=== PATIENT | male | born 1975 | race Caucasian/White ===

== ENCOUNTER 2017-04-15 09:48 | Emergency (ER) | payer SELFPAY ==
[~2017-04-15] VITALS: Ht 175.3 cm; Wt 61.5 kg
[2017-04-15 09:57] VITALS: BP 164/80; PULSE 89; RESP 12; TEMP 98.2; O2SAT 99
[2017-04-15] MEDS ORDERED: CIPROFLOXACIN 500 MG TAB PO ONE (10:00)
[2017-04-15] MEDS ORDERED: TETANUS/DIPHTHERIA TOXOID ADULT 0.5 ML VIAL IM ONE (10:00)
--- NOTE | 2017-04-15 10:12 | PD ---
HPI Chief Complaint: Injury Time Seen by Provider: 10:00 Travel History International Travel<30 days: No Contact w/Intl Traveler<30days: No Traveled to known affect area: No History of Present Illness HPI while ripping roof, accidentally stepped on nail, through tennis shoe yesterday , he pulled nail out and kept working. this morning throbbing pain and noticed some redness to skin, 7/10, worse with walking, no alleviating factors. denies factors of fever/n/v/d/cp/abd pain/back pain all:nkda pmhx: hep c pshx:denies PFSH Past Medical History Hx Anticoagulant Therapy: No Cardiovascular Problems: No Chemotherapy: No Cerebrovascular Accident: No Diabetes: No Respiratory: Yes (hep C) Allergies-Medications (Allergen,Severity, Reaction): Coded Allergies: No Known Allergies (Unverified , 04/15/17) Review of Systems Except as stated in HPI: all other systems reviewed are Neg General / Constitutional: No: Fever Eyes: No: Visual changes HENT: No: Headaches Cardiovascular: No: Chest Pain or Discomfort Respiratory: No: Shortness of Breath Gastrointestinal: No: Abdominal Pain Genitourinary: No: Dysuria Musculoskeletal: Positive: Pain (left foot ) Skin: Positive Lesions, No Rash Neurologic: No: Weakness Psychiatric: No: Depression Endocrine: No: Polydipsia Hematologic/Lymphatic: No: Easy Bruising Physical Exam Narrative GENERAL: SKIN: Warm and dry. see diagram HEAD: Atraumatic. Normocephalic. EYES: Pupils equal and round. No scleral icterus. No injection or drainage. ENT: No nasal bleeding or discharge. Mucous membranes pink and moist. NECK: Trachea midline. No JVD. CARDIOVASCULAR: Regular rate and rhythm. RESPIRATORY: No accessory muscle use. Clear to auscultation. Breath sounds equal bilaterally. GASTROINTESTINAL: Abdomen soft, non-tender, nondistended. Hepatic and splenic margins not palpable. MUSCULOSKELETAL: Extremities without clubbing, cyanosis, or edema. No obvious deformities. see diagram NEUROLOGICAL: Awake and alert. No obvious cranial nerve deficits. Motor grossly within normal limits. Five out of 5 muscle strength in the arms and legs. Normal speech. PSYCHIATRIC: Appropriate mood and affect; insight and judgment normal. Feet 1 - Other (area marked is area of erythematous streak, warm, ttp, no crepitus) 1 - Other: (puncture site, no drainage, no cellulitic changes) Data Data Last Documented VS Vital Signs Date Time Temp Pulse Resp B/P (MAP) Pulse Ox O2 Delivery O2 Flow Rate FiO2 04/15/17 09:57 98.2 89 12 164/80 (108) 99 Orders Orders Foot, Limited (2vws) (04/15/17 ) Tetanus/Diphtheria Tox Adult (Tetanus/Di (04/15/17 10:00) Ciprofloxacin (Cipro) (04/15/17 10:00) MDM Medical Decision Making Medical Screen Exam Complete: Yes Emergency Medical Condition: Yes Medical Record Reviewed: Yes Differential Diagnosis bone fracture v lymphangitis v cellulitis v gas Narrative Course xray does not show gas, or fracture bones, nor any retained foreign body.....tetanus updated and given first dose of antibiotic in department. Diagnosis Primary Impression: early lymphangitis from foot puncture wound Scripts Tramadol (Ultram) 50 Mg Tab 50 MG PO Q4H Y for PAIN, #15 TAB 0 Refills Prov: Magan Conte MD 04/15/17 Ciprofloxacin (Cipro) 500 Mg Tab 500 MG PO BID for Infection for 10 Days, #20 TAB 0 Refills Prov: Magan Conte MD 04/15/17 Disposition: 01 DISCHARGE HOME Condition: Stable Magan Conte MD Apr 15, 2017 10:12
[2017-04-15] MEDS ORDERED: CIPR-9 PO (10:16)
[2017-04-15] MEDS ORDERED: TRAM50 PO (10:16)
--- NOTE | 2017-04-15 10:25 | RADRPT ---
EXAM DATE/TIME: 04/15/2017 10:12 [facility] COMPARISON: No previous studies available for comparison. INDICATIONS : Patient stepped on nail yesterday and complains of left foot pain. MEDICAL HISTORY : None. SURGICAL HISTORY : None. ENCOUNTER: Initial ACUITY: 2 days PAIN SCORE: 10/10 LOCATION: Left Foot FINDINGS: Two view examination of the left foot demonstrates soft tissue swelling without dislocation, or fract ure. The calcaneus is intact. Bony mineralization is normal. CONCLUSION: Soft tissue swelling on the plantar aspect. No fracture or foreign body. Hunter Elaine MD on April 15, 2017 at 10:22 Board Certified Radiologist. This report was verified electronically.
== END 2017-04-15 10:38 | disposition home or self-care (01) ==
LOC: NEPD 09:48
DX: I89.1 Lymphangitis (principal); S91.332A Puncture wound without foreign body, left foot, initial encounter; W45.0XXA Nail entering through skin, initial encounter; Y93.H3 Activity, building and construction; Z23 Encounter for immunization
CPT/HCPCS: 73620; 90714; 96372